=== PATIENT | male | born 1930 | race Caucasian/White ===

== ENCOUNTER 2016-04-16 17:43 | Inpatient (IN) | payer OTHER ==
[~2016-04-16] VITALS: Ht 170.2 cm; Wt 65.7 kg
[~2016-04-16 17:43] MED LIST: ALFUZOSIN HCL10 MG PO; ASPIRIN81 M1 PO; BACTRIM,SEPT1 TABLET PO; COREG12.5 M1 PO; COREG25 M1 PO; COREG25 MG PO; CRESTOR40 MG PO; DIGOX250 MCG PO; DIOVAN320 MG PO; LANOXIN,DIGIT0.25 MG PO; NITROSTAT0.4 MG SL; OMEGA 3 1,0001 EAC1 PO; PLAVIX75 MG PO; PROMETHAZINE-C120 ML PO; PROSCAR5 MG PO; SPIRIVA1 INHALATI IH; TRAVATAN 0.004%5 ML BOTH EYES; UROXATRAL10 MG PO; VIAGRA50 MG PO; WARFARIN SODIUM5 MG PO; XALATAN2.5 ML; XALATAN2.5 ML BOTH EYES
[2016-04-16 18:52] LABS: HEMATOCRIT 37.1 % (38.0-50.0); MCH 29.5 PG (29.0-34.0); MCHC 32.6 G/DL (30.0-36.0); MCV 90.5 FL (86-99); MEAN PLAT.VOLUME 10.1 uM^3 (9.0-12.4); PLATELET COUNT 159 K/uL (156-360); RBC DIS.WIDTH-CV 13.9 % (11.8-14.6); RBC DIS.WIDTH-SD 44.5 % (39-53)
[2016-04-16 19:11] LABS: CHLORIDE 103 mEq/L (99-109); POTASSIUM 4.4 mEq/L (3.7-5.4); SODIUM 137 mEq/L (136-147)
[2016-04-16 19:13] LABS: GLUCOSE 84 mg/dL (70-99)
[2016-04-16 19:14] LABS: ANION GAP 6 MEQ/L (2-14)
[2016-04-16 19:16] LABS: TROP-I INTERPRETATION NEGATIVE; TROPONIN-I 0.01 ng/mL (0.0-0.30)
[2016-04-16 19:17] LABS: GFR ESTIMATE (CALCULATED) > 59 mL/min/
[2016-04-16 19:18] LABS: UREA NITROGEN (BUN) 14 mg/dL (9-23)
[2016-04-16] MEDS ORDERED: LASIX20 MG PO (21:14)
[2016-04-16 21:16] LABS: TROP-I INTERPRETATION NEGATIVE; TROPONIN-I 0.02 ng/mL (0.0-0.30)
[2016-04-16 22:24] LABS: D-DIMER ELISA 0.66 mg/L FEU (< 0.57)
[2016-04-16 23:12] LABS: INFLUENZA A VIRAL ANTIGEN NEGATIVE; INFLUENZA B VIRAL ANTIGEN NEGATIVE
[2016-04-17] VITALS (9 sets, daily range): BP systolic 114–155; BP diastolic 61–86
[2016-04-17 03:45] LABS: TROP-I INTERPRETATION NEGATIVE; TROPONIN-I 0.02 ng/mL (0.0-0.30)
[2016-04-17 09:12] LABS: TROP-I INTERPRETATION NEGATIVE; TROPONIN-I 0.02 ng/mL (0.0-0.30)
[2016-04-18 05:40] VITALS: BP 167/91
[2016-04-18 06:29] LABS: EOSINOPHIL (%) 4.8 % (0-5); EOSINOPHIL COUNT 0.2 K/uL (0-0.3); HEMATOCRIT 36.7 % (38.0-50.0); LYMPHOCYTE COUNT 1.3 K/uL (1.0-2.8); MCH 29.1 PG (29.0-34.0); MCHC 32.7 G/DL (30.0-36.0); MCV 89.1 FL (86-99); MEAN PLAT.VOLUME 9.9 uM^3 (9.0-12.4); MONOCYTE (%) 8.5 % (3-12); MONOCYTE COUNT 0.4 K/uL (0-0.8); NEUTROPHIL (%) 59.2 % (45-76); NEUTROPHIL COUNT 2.9 K/uL (1.8-6.4); PLATELET COUNT 164 K/uL (156-360); RBC DIS.WIDTH-SD 45.6 % (39-53); RED BLOOD COUNT 4.12 M/uL (4.00-5.50)
[2016-04-18 07:02] LABS: ALKALINE PHOSPHATASE 100 IU/L (3-129); ANION GAP 9 MEQ/L (2-14); CHLORIDE 102 MEQ/L (99-109); GFR ESTIMATE (CALCULATED) > 59 mL/min/; GLUCOSE 89 mg/dL (70-99); POTASSIUM 3.7 MEQ/L (3.7-5.4); SAMPLE HEMOLYSIS CHECK 0; SAMPLE ICTERIC CHECK 1; SAMPLE LIPEMIA CHECK 0; SODIUM 142 MEQ/L (136-147); TOTAL BILIRUBIN 2.7 MG/DL (0.0-1.0); UREA NITROGEN (BUN) 18 mg/dL (9-23)
[2016-04-18 08:07] VITALS: BP 138/89
[2016-04-18] MEDS ORDERED: ADVAIR HFA120 INHALA IH (10:28)
[2016-04-18] MEDS ORDERED: AZITHROMYCIN500 M1 PO (10:28)
[2016-04-18] MEDS ORDERED: LISINOPRIL2.5 MG PO (10:33)
== END 2016-04-18 12:00 | disposition home or self-care (01) | DRG 291 ==
LOC: EME 17:43 → RME 17:43 → 4EAST 21:09 → EDOF 21:09 → 4EAST 04-17 01:08
PROVIDERS: Emergency Medicine; Hospitalist; Internal Medicine
DX: I11.0 Hypertensive heart disease with heart failure (principal); J96.01 Acute respiratory failure with hypoxia; J81.0 Acute pulmonary edema; I48.0 Paroxysmal atrial fibrillation; I49.5 Sick sinus syndrome; J44.1 Chronic obstructive pulmonary disease with (acute) exacerbation; I50.31 Acute diastolic (congestive) heart failure; E78.5 Hyperlipidemia, unspecified; I25.10 Atherosclerotic heart disease of native coronary artery without angina pectoris; Z95.5 Presence of coronary angioplasty implant and graft; Z95.0 Presence of cardiac pacemaker; Z79.01 Long term (current) use of anticoagulants; N40.0 Benign prostatic hyperplasia without lower urinary tract symptoms
CPT/HCPCS: 36415; 71020; 71275; 80048; 80053; 83880; 84484; 85025; 85027; 85379; 87502; 93005; 93306; 94640; 94640 76; 94799; 99281; 99285; J1940

== ENCOUNTER 2016-06-19 03:46 | Emergency (ER) | payer OTHER ==
[~2016-06-19] VITALS: Ht 170.2 cm; Wt 64.6 kg
[~2016-06-19 03:46] MED LIST changes: +ADVAIR HFA120 INHALA IH; +AZITHROMYCIN500 M1 PO; +LASIX20 MG PO; +LISINOPRIL2.5 MG PO
[2016-06-19 04:09] LABS: CREATININE 0.9 mg/dL (0.6-1.3); POTASSIUM 3.8 mEq/L (3.7-5.4)
[2016-06-19 04:10] LABS: EOSINOPHIL COUNT 0.3 K/uL (0-0.3); HEMATOCRIT 40.9 % (38.0-50.0); IMMATURE GRANULOCYTE (%) 0.1 % (0.0-0.7); IMMATURE GRANULOCYTE COUNT 0.1 K/uL; LYMPHOCYTE COUNT 1.3 K/uL (1.0-2.8); MCH 29.6 PG (29.0-34.0); MCHC 33.5 G/DL (30.0-36.0); MCV 88.3 FL (86-99); MEAN PLAT.VOLUME 9.8 uM^3 (9.0-12.4); MONOCYTE (%) 5.7 % (3-12); MONOCYTE COUNT 0.4 K/uL (0-0.8); NEUTROPHIL (%) 70.4 % (45-76); NEUTROPHIL COUNT 4.8 K/uL (1.8-6.4); PLATELET COUNT 165 K/uL (156-360); RBC DIS.WIDTH-CV 13.9 % (11.8-14.6); RBC DIS.WIDTH-SD 44.1 % (39-53); RED BLOOD COUNT 4.63 M/uL (4.00-5.50); WHITE BLOOD COUNT 6.8 K/uL (4.1-10.2)
[2016-06-19 04:19] LABS: AMYLASE 113 IU/L (1-118); CHLORIDE 107 mEq/L (99-109); POTASSIUM 4.1 mEq/L (3.7-5.4); SODIUM 142 mEq/L (136-147)
[2016-06-19 04:21] LABS: GLUCOSE 116 mg/dL (70-99)
[2016-06-19 04:22] LABS: ANION GAP 9 MEQ/L (2-14)
[2016-06-19 04:23] LABS: INTER. NORMALIZED RATIO 1.1; PROTHROMBIN TIME 11.7 (9.2-11.2); PTT 27.3 (25-32)
[2016-06-19 04:24] LABS: SERUM ETHYL ALCOHOL < 10 mg/dL
[2016-06-19 04:25] LABS: GFR ESTIMATE (CALCULATED) > 59 mL/min/
[2016-06-19 04:26] LABS: UREA NITROGEN (BUN) 23 mg/dL (9-23)
[2016-06-19 04:28] LABS: LIPASE 44 U/L (1.0-51.0)
[2016-06-19 04:32] LABS: TROP-I INTERPRETATION NEGATIVE; TROPONIN-I 0.02 ng/mL (0.0-0.30)
[2016-06-19 06:14] LABS: ADD MIUA? NO; BILIRUBIN NEGATIVE; BLOOD NEGATIVE; COLOR STRAW ((YELLOW)); GLUCOSE (STRIP) NEGATIVE; KETONES NEGATIVE; LEUKOCYTES NEGATIVE; NITRITE NEGATIVE; PROTEIN (STRIP) NEGATIVE; SPECIFIC GRAVITY 1.027 (1.000-1.030); UCUL ADDED? NO; UROBILINOGEN 0.2 MG/DL (0.2-1.0)
[2016-06-19 06:36] LABS: AMPHETAMINE NEGATIVE (500 ng/mL); BARBITURATES NEGATIVE (200 ng/mL); BENZODIAZEPINES NEGATIVE (150 ng/mL); COCAINE NEGATIVE (150 ng/mL); INTERNAL CONTROLS VALID? YES; METHADONE NEGATIVE (200 ng/mL); METHAMPHETAMINE NEGATIVE (500 ng/mL); OPIATES (MORPHINE) NEGATIVE (100 ng/mL); OXYCODONE NEGATIVE (100 ng/mL); PHENCYCLIDINE NEGATIVE (25 ng/mL); PROPOXYPHENE NEGATIVE (300 ng/mL); THC CANNABINOIDS NEGATIVE (50 ng/mL); TRICYCLIC ANTIDEPRESSANTS NEGATIVE (300 ng/mL)
[2016-06-19 08:38] VITALS: BP 164/82
== END 2016-06-19 08:53 | disposition short-term general hospital (02) ==
LOC: EME → EDBD 03:46 → EME 08:53
PROVIDERS: Emergency Medicine
DX: I63.541 Cerebral infarction due to unspecified occlusion or stenosis of right cerebellar artery (principal); I65.21 Occlusion and stenosis of right carotid artery; G81.90 Hemiplegia, unspecified affecting unspecified side; J44.9 Chronic obstructive pulmonary disease, unspecified; E78.5 Hyperlipidemia, unspecified; I10 Essential (primary) hypertension; I25.2 Old myocardial infarction; I25.10 Atherosclerotic heart disease of native coronary artery without angina pectoris; Z95.0 Presence of cardiac pacemaker
CPT/HCPCS: 70450; 70496; 70498; 80047; 80048; 81003; 82150; 83690; 84484; 85025; 85610; 85730; 86850; 86900; 86901; 93005; 99281; 99285; G0480; J7030

== ENCOUNTER 2016-07-31 01:54 | Emergency (ER) | payer OTHER ==
[~2016-07-31] VITALS: Ht 172.7 cm; Wt 63.1 kg
[2016-07-31] MEDS ORDERED: KEFLEX500 MG PO (02:39)
[2016-07-31 03:53] VITALS: BP 176/93
== END 2016-07-31 04:01 ==
LOC: EME → EDBD 01:54 → EME 01:54
PROC: 2Y41X5Z Packing of Nasal Region using Packing Material (ICD-10-PCS; principal; 2016-07-31)
DX: R04.0 Epistaxis (principal); J44.9 Chronic obstructive pulmonary disease, unspecified; E78.5 Hyperlipidemia, unspecified; I10 Essential (primary) hypertension; I25.2 Old myocardial infarction; Z79.01 Long term (current) use of anticoagulants
CPT/HCPCS: 99281; 99284

== ENCOUNTER → 2016-08-06 | Outpatient (CLI) | payer OTHER ==
[~2016-08-06] MED LIST changes: +KEFLEX500 MG PO
== END ==
LOC: RAD 09:58
DX: I63.311 Cerebral infarction due to thrombosis of right middle cerebral artery (principal); I69.354 Hemiplegia and hemiparesis following cerebral infarction affecting left non-dominant side; I69.391 Dysphagia following cerebral infarction; I10 Essential (primary) hypertension; I25.10 Atherosclerotic heart disease of native coronary artery without angina pectoris; Z95.0 Presence of cardiac pacemaker; Z95.5 Presence of coronary angioplasty implant and graft; J44.9 Chronic obstructive pulmonary disease, unspecified
CPT/HCPCS: 70450

== ENCOUNTER 2016-11-08 06:30 | Inpatient (IN) | payer OTHER ==
[~2016-11-08] VITALS: Ht 167.6 cm; Wt 64.6 kg
[2016-11-08 07:36] LABS: HEMATOCRIT 38.6 % (38.0-50.0); MCHC 32.4 G/DL (30.0-36.0); MCV 89.6 FL (86-99); MEAN PLAT.VOLUME 8.8 uM^3 (9.0-12.4); PLATELET COUNT 253 K/uL (156-360); RBC DIS.WIDTH-CV 13.2 % (11.8-14.6); RBC DIS.WIDTH-SD 43.3 % (39-53); RED BLOOD COUNT 4.31 M/uL (4.00-5.50); WHITE BLOOD COUNT 7.7 K/uL (4.1-10.2)
[2016-11-08 07:43] LABS: INTER. NORMALIZED RATIO 1.2; PROTHROMBIN TIME 13.1 SEC (10.2-12.9)
[2016-11-08 08:00] LABS: TROP-I INTERPRETATION NEGATIVE; TROPONIN-I < 0.01 ng/mL (0.0-0.30)
[2016-11-08 08:01] LABS: DIGOXIN < 0.3 ng/mL (0.8-2.0)
[2016-11-08 08:02] LABS: CHLORIDE 105 mEq/L (99-109); POTASSIUM 4.2 mEq/L (3.7-5.4); SODIUM 139 mEq/L (136-147)
[2016-11-08 08:05] LABS: ANION GAP 8 MEQ/L (2-14); GLUCOSE 106 mg/dL (70-99)
[2016-11-08 08:06] LABS: TOTAL BILIRUBIN 1.4 mg/dL (0.0-1.0)
[2016-11-08 08:08] LABS: ALKALINE PHOSPHATASE 95 IU/L (3-129); GFR ESTIMATE (CALCULATED) > 59 mL/min/
[2016-11-08 08:09] LABS: UREA NITROGEN (BUN) 17 mg/dL (9-23)
[2016-11-08 08:10] LABS: ADD MIUA? NO; BILIRUBIN NEGATIVE; BLOOD NEGATIVE; COLOR STRAW ((YELLOW)); GLUCOSE (STRIP) NEGATIVE; KETONES NEGATIVE; LEUKOCYTES NEGATIVE; NITRITE NEGATIVE; PROTEIN (STRIP) NEGATIVE; UCUL ADDED? NO; UROBILINOGEN 0.2 MG/DL (0.2-1.0)
[2016-11-08] MEDS ORDERED: CRESTOR40 MG PO (09:55)
[2016-11-08] MEDS ORDERED: COREG3.125 M1 PO (09:57)
[2016-11-08] MEDS ORDERED: VIBRAMYCIN100 MG PO (10:04)
[2016-11-08] MEDS ORDERED: SYMBICORT60 INHALA1 IH (10:19)
[2016-11-08 12:00] VITALS: BP 174/103
[2016-11-08 16:57] VITALS: BP 145/79
[2016-11-08 20:00] VITALS: BP 137/79
[2016-11-08 23:55] VITALS: BP 143/91
[2016-11-09 04:00] VITALS: BP 156/94
[2016-11-09 05:37] LABS: HEMATOCRIT 38.3 % (38.0-50.0); MCH 29.8 PG (29.0-34.0); MCHC 33.2 G/DL (30.0-36.0); MCV 89.9 FL (86-99); MEAN PLAT.VOLUME 9.3 uM^3 (9.0-12.4); PLATELET COUNT 266 K/uL (156-360); RBC DIS.WIDTH-CV 13.4 % (11.8-14.6); RBC DIS.WIDTH-SD 43.6 % (39-53); RED BLOOD COUNT 4.26 M/uL (4.00-5.50); WHITE BLOOD COUNT 7.3 K/uL (4.1-10.2)
[2016-11-09 05:59] LABS: ANION GAP 7 MEQ/L (2-14); CHLORIDE 104 MEQ/L (99-109); GFR ESTIMATE (CALCULATED) > 59 mL/min/; GLUCOSE 89 mg/dL (70-99); SAMPLE HEMOLYSIS CHECK 0; SAMPLE ICTERIC CHECK 0; SAMPLE LIPEMIA CHECK 0; SODIUM 140 MEQ/L (136-147); UREA NITROGEN (BUN) 12 mg/dL (9-23)
[2016-11-09 08:49] VITALS: BP 153/91
[2016-11-09] MEDS ORDERED: LEVETIRACETAM500 MG PO (09:54)
== END 2016-11-09 13:12 | disposition home or self-care (01) | DRG 101 ==
LOC: EME → EDBD 06:30 → 4EAST 09:47 → EDOF 09:47 → ENRESERV 09:51 → 4EAST 11:33
PROVIDERS: Emergency Medicine; Hospitalist
DX: G40.409 Other generalized epilepsy and epileptic syndromes, not intractable, without status epilepticus (principal); I49.5 Sick sinus syndrome; I69.354 Hemiplegia and hemiparesis following cerebral infarction affecting left non-dominant side; E78.00 Pure hypercholesterolemia, unspecified; E78.5 Hyperlipidemia, unspecified; I25.10 Atherosclerotic heart disease of native coronary artery without angina pectoris; I25.2 Old myocardial infarction; I48.0 Paroxysmal atrial fibrillation; I51.7 Cardiomegaly; J44.9 Chronic obstructive pulmonary disease, unspecified; Z79.01 Long term (current) use of anticoagulants; Z79.02 Long term (current) use of antithrombotics/antiplatelets; Z79.899 Other long term (current) drug therapy; Z95.0 Presence of cardiac pacemaker; Z95.5 Presence of coronary angioplasty implant and graft
CPT/HCPCS: 36415; 70450; 71010; 80048; 80053; 80162; 81003; 83605; 84484; 85027; 85610; 93005; 94640; 94640 76; 95819; 99281; 99283; J1644; J7030

== ENCOUNTER 2016-12-30 02:57 | Observation (INO) | payer OTHER ==
[~2016-12-30] VITALS: Ht 167.6 cm; Wt 69.2 kg
[~2016-12-30 02:57] MED LIST changes: +COREG3.125 M1 PO; +LEVETIRACETAM500 MG PO; +SYMBICORT60 INHALA1 IH; +VIBRAMYCIN100 MG PO
[2016-12-30] MEDS ORDERED: KEPPRA250 MG PO (03:12)
[2016-12-30] MEDS ORDERED: MUCINEX600 MG PO (03:13)
[2016-12-30] MEDS ORDERED: DEPAKOTE250 MG PO (03:13)
[2016-12-30 03:46] LABS: HEMATOCRIT 36.2 % (38.0-50.0); MCH 28.8 PG (29.0-34.0); MCV 89.8 FL (86-99); MEAN PLAT.VOLUME 9.3 uM^3 (9.0-12.4); PLATELET COUNT 218 K/uL (156-360); RBC DIS.WIDTH-CV 14.3 % (11.8-14.6); RED BLOOD COUNT 4.03 M/uL (4.00-5.50); WHITE BLOOD COUNT 8.2 K/uL (4.1-10.2)
[2016-12-30 04:02] LABS: INTER. NORMALIZED RATIO 1.1; PROTHROMBIN TIME 12.1 SEC (10.2-12.9)
[2016-12-30 04:03] LABS: CHLORIDE 107 mEq/L (99-109); SODIUM 143 mEq/L (136-147)
[2016-12-30 04:05] LABS: GLUCOSE 101 mg/dL (70-99)
[2016-12-30 04:07] LABS: ANION GAP 13 MEQ/L (2-14); TOTAL BILIRUBIN 1.1 mg/dL (0.0-1.0)
[2016-12-30 04:09] LABS: ALKALINE PHOSPHATASE 90 IU/L (3-129); GFR ESTIMATE (CALCULATED) > 59 mL/min/
[2016-12-30 04:10] LABS: UREA NITROGEN (BUN) 19 mg/dL (9-23)
[2016-12-30 04:12] LABS: LIPASE 14 U/L (1.0-51.0)
[2016-12-30 04:13] LABS: CREATINE KINASE 45 IU/L (1-294); TOTAL CK 45 IU/L (1-294)
[2016-12-30 04:19] LABS: CK-MB 1.3 ng/mL (0.0-4.9)
[2016-12-30 09:30] VITALS: BP 162/77
[2016-12-30 13:00] VITALS: BP 175/81
[2016-12-30 13:41] LABS: ADD MIUA? YES; BILIRUBIN NEGATIVE; BLOOD NEGATIVE; COLOR YELLOW ((YELLOW)); GLUCOSE (STRIP) NEGATIVE; KETONES NEGATIVE; LEUKOCYTES LARGE; NITRITE NEGATIVE; PROTEIN (STRIP) NEGATIVE; SPECIFIC GRAVITY 1.008 (1.000-1.030); UROBILINOGEN 0.2 MG/DL (0.2-1.0)
[2016-12-30 14:10] LABS: RED BLOOD CELLS 0-5 /HPF (0-5); WHITE BLOOD CELLS TNTC /HPF (0-5)
[2016-12-30 14:11] LABS: BACTERIA RARE /HPF; CASTS NONE SEEN /LPF; CRYSTALS NONE SEEN; EPITHELIAL CELLS RARE /HPF; MUCUS NONE SEEN /LPF; UCUL ADDED? YES
[2016-12-30 16:06] VITALS: BP 135/85
[2016-12-30 20:00] VITALS: BP 147/80
[2016-12-31] VITALS: BP 142/80
[2016-12-31 04:00] VITALS: BP 121/76
[2016-12-31 09:05] VITALS: BP 176/101
[2016-12-31] MEDS ORDERED: DIVALPROEX SOD500 MG PO (11:13)
[2016-12-31] MEDS ORDERED: KEFLEX500 MG PO (11:15)
[2016-12-31 11:42] VITALS: BP 116/77
== END 2016-12-31 12:20 | disposition home or self-care (01) ==
LOC: EME → EDBD 02:57 → EME 02:57 → EDOF 07:54 → ENRESERV 07:58 → 5WEST 09:32
PROVIDERS: Emergency Medicine; Hospitalist
DX: G40.909 Epilepsy, unspecified, not intractable, without status epilepticus (principal); I69.354 Hemiplegia and hemiparesis following cerebral infarction affecting left non-dominant side; M54.9 Dorsalgia, unspecified; I25.10 Atherosclerotic heart disease of native coronary artery without angina pectoris; I25.2 Old myocardial infarction; Z95.5 Presence of coronary angioplasty implant and graft; I49.5 Sick sinus syndrome; Z95.0 Presence of cardiac pacemaker; I48.0 Paroxysmal atrial fibrillation; I10 Essential (primary) hypertension; J44.9 Chronic obstructive pulmonary disease, unspecified; R13.10 Dysphagia, unspecified; Z88.6 Allergy status to analgesic agent
CPT/HCPCS: 71020; 80053; 80164; 81003; 82550; 82553; 83690; 85027; 85610; 85730; 87077; 87086; 87186; 93005; 94640; 94640 76; 94760; 99202; 99281; 99285; G0378; J0696; J1650; J7030; J7050

== ENCOUNTER 2017-01-23 19:29 | Emergency (ER) | payer OTHER ==
[~2017-01-23] VITALS: Ht 172.7 cm; Wt 71.5 kg
[~2017-01-23 19:29] MED LIST changes: +DEPAKOTE250 MG PO; +DIVALPROEX SOD500 MG PO; +KEPPRA250 MG PO; +MUCINEX600 MG PO
[2017-01-23 19:52] LABS: EOSINOPHIL COUNT 0.4 K/uL (0-0.3); HEMATOCRIT 40.2 % (38.0-50.0); IMMATURE GRANULOCYTE (%) 0.8 % (0.0-0.7); IMMATURE GRANULOCYTE COUNT 0.1 K/uL; INSTRUMENT ABS NEUTROPHIL CT 3.4 K/uL; LYMPHOCYTE COUNT 1.5 K/uL (1.0-2.8); MCH 29.1 PG (29.0-34.0); MCHC 31.8 G/DL (30.0-36.0); MCV 91.4 FL (86-99); MEAN PLAT.VOLUME 10.1 uM^3 (9.0-12.4); MONOCYTE (%) 10.3 % (3-12); MONOCYTE COUNT 0.6 K/uL (0-0.8); NEUTROPHIL (%) 56.8 % (45-76); NEUTROPHIL COUNT 3.4 K/uL (1.8-6.4); PLATELET COUNT 183 K/uL (156-360); RBC DIS.WIDTH-CV 14.5 % (11.8-14.6); RBC DIS.WIDTH-SD 48.5 % (39-53)
[2017-01-23 19:58] LABS: INTER. NORMALIZED RATIO 1.1; PROTHROMBIN TIME 11.9 SEC (10.2-12.9)
[2017-01-23 20:00] LABS: PTT 26.4 SEC (25-37)
[2017-01-23 20:01] LABS: AMYLASE 96 IU/L (1-118); POTASSIUM 4.7 mEq/L (3.7-5.4); SODIUM 144 mEq/L (136-147)
[2017-01-23 20:02] LABS: GLUCOSE 113 mg/dL (70-99)
[2017-01-23 20:04] LABS: ANION GAP 14 MEQ/L (2-14)
[2017-01-23 20:06] LABS: GFR ESTIMATE (CALCULATED) 51 mL/min/; SERUM ETHYL ALCOHOL < 10 mg/dL
[2017-01-23 20:07] LABS: UREA NITROGEN (BUN) 28 mg/dL (9-23)
[2017-01-23 20:09] LABS: LIPASE 38 U/L (1.0-51.0)
[2017-01-23 20:12] LABS: TROP-I INTERPRETATION NEGATIVE; TROPONIN-I 0.01 ng/mL (0.0-0.30)
[2017-01-23 20:17] LABS: CHLORIDE 105 mEq/L (99-109)
[2017-01-23] MEDS ORDERED: KEPPRA500 MG PO (21:08)
[2017-01-23 22:29] LABS: ADD MIUA? NO; BILIRUBIN NEGATIVE; BLOOD NEGATIVE; COLOR YELLOW ((YELLOW)); GLUCOSE (STRIP) NEGATIVE; KETONES NEGATIVE; LEUKOCYTES NEGATIVE; NITRITE NEGATIVE; PROTEIN (STRIP) 30; SPECIFIC GRAVITY 1.016 (1.000-1.030); UCUL ADDED? NO; UROBILINOGEN 0.2 MG/DL (0.2-1.0)
[2017-01-23 22:57] LABS: AMPHETAMINE NEGATIVE (500 ng/mL); BARBITURATES NEGATIVE (200 ng/mL); BENZODIAZEPINES NEGATIVE (150 ng/mL); COCAINE NEGATIVE (150 ng/mL); INTERNAL CONTROLS VALID? YES; METHADONE NEGATIVE (200 ng/mL); METHAMPHETAMINE NEGATIVE (500 ng/mL); OPIATES (MORPHINE) NEGATIVE (100 ng/mL); OXYCODONE NEGATIVE (100 ng/mL); PHENCYCLIDINE NEGATIVE (25 ng/mL); PROPOXYPHENE NEGATIVE (300 ng/mL); THC CANNABINOIDS NEGATIVE (50 ng/mL); TRICYCLIC ANTIDEPRESSANTS NEGATIVE (300 ng/mL)
[2017-01-23 23:39] VITALS: BP 152/97
== END 2017-01-23 23:38 | disposition home or self-care (01) ==
LOC: EME → EDBD 19:29 → EDSEX 19:29 → EME 19:29
DX: I69.398 Other sequelae of cerebral infarction (principal); G40.89 Other seizures; I69.334 Monoplegia of upper limb following cerebral infarction affecting left non-dominant side; I48.91 Unspecified atrial fibrillation; Z79.01 Long term (current) use of anticoagulants; I10 Essential (primary) hypertension; I25.10 Atherosclerotic heart disease of native coronary artery without angina pectoris; I25.2 Old myocardial infarction; Z95.5 Presence of coronary angioplasty implant and graft; E78.5 Hyperlipidemia, unspecified; J44.9 Chronic obstructive pulmonary disease, unspecified; H40.9 Unspecified glaucoma; Z95.0 Presence of cardiac pacemaker
CPT/HCPCS: 70450; 74020; 80048; 80164; 81003; 82150; 83690; 84484; 85025; 85610; 85730; 86850; 86900; 86901; 93005; 99281; 99285; G0480; J7030

== ENCOUNTER → 2017-08-02 | Outpatient (CLI) | payer OTHER ==
[~2017-08-02] MED LIST changes: +COZAAR25 MG PO; +KEPPRA500 MG PO; +LASIX40 MG PO
== END | disposition home or self-care (01) ==
LOC: NUC 08:00
DX: M89.8X2 Other specified disorders of bone, upper arm (principal); M89.8X1 Other specified disorders of bone, shoulder; M89.8X8 Other specified disorders of bone, other site; M19.012 Primary osteoarthritis, left shoulder; M41.85 Other forms of scoliosis, thoracolumbar region; Z95.0 Presence of cardiac pacemaker
CPT/HCPCS: 78315; A9503

== ENCOUNTER 2017-12-02 07:54 | Inpatient (IN) | payer OTHER ==
[~2017-12-02] VITALS: Ht 167.6 cm; Wt 72.6 kg
[2017-12-02 09:56] LABS: BASOPHIL (%) 0.2 % (0-1); EOSINOPHIL (%) 0.4 % (0-5); EOSINOPHIL COUNT 0.1 K/uL (0-0.3); HEMATOCRIT 34.6 % (38.0-50.0); HEMOGLOBIN 11.4 G/DL (12.5-16.6); IMMATURE GRANULOCYTE (%) 0.4 % (0.0-0.7); LYMPHOCYTE (%) 8.8 % (15-42); LYMPHOCYTE COUNT 1.2 K/uL (1.0-2.8); MCH 31.1 PG (29.0-34.0); MCHC 32.9 G/DL (30.0-36.0); MCV 94.5 FL (86-99); MONOCYTE (%) 10.7 % (3-12); MONOCYTE COUNT 1.4 K/uL (0-0.8); NEUTROPHIL (%) 79.5 % (45-76); NEUTROPHIL COUNT 10.8 K/uL (1.8-6.4); PLATELET COUNT 169 K/uL (156-360); RBC DIS.WIDTH-CV 13.8 % (11.8-14.6); RBC DIS.WIDTH-SD 47.9 % (39-53); RED BLOOD COUNT 3.66 M/uL (4.00-5.50); WHITE BLOOD COUNT 13.5 K/uL (4.1-10.2)
[2017-12-02 10:11] LABS: CHLORIDE 108 mEq/L (99-109); POTASSIUM 4.8 mEq/L (3.7-5.4); SODIUM 141 mEq/L (136-147)
[2017-12-02 10:12] LABS: MAGNESIUM 2.2 mg/dL (1.3-2.7)
[2017-12-02 10:13] LABS: GLUCOSE 105 mg/dL (70-99)
[2017-12-02 10:17] LABS: CREATININE 1.5 mg/dL (0.6-1.3); GFR ESTIMATE (CALCULATED) 47 mL/min/ (58.99-99999); INTER. NORMALIZED RATIO 1.2; UREA NITROGEN (BUN) 23 mg/dL (9-23)
[2017-12-02 10:19] LABS: TROP-I INTERPRETATION NEGATIVE; TROPONIN-I 0.03 ng/mL (0.0-0.30)
[2017-12-02 10:20] LABS: PTT 26.3 SEC (25-37)
[2017-12-02 10:30] LABS: APPEARANCE CLOUDY ((CLEAR)); BILIRUBIN NEGATIVE; BLOOD LARGE; COLOR YELLOW ((YELLOW)); GLUCOSE (STRIP) NEGATIVE; KETONES NEGATIVE; LEUKOCYTES LARGE; NITRITE NEGATIVE; PROTEIN (STRIP) 100; SPECIFIC GRAVITY 1.016 (1.000-1.030); UROBILINOGEN 0.2 MG/DL (0.2-1.0)
[2017-12-02 10:42] LABS: RED BLOOD CELLS TNTC /HPF (0-5); WHITE BLOOD CELLS TNTC /HPF (0-5)
[2017-12-02 10:43] LABS: BACTERIA RARE /HPF; EPITHELIAL CELLS 1+ /HPF; MUCUS RARE /LPF; UCUL ADDED? YES
[2017-12-02] MEDS ORDERED: COLACE100 MG PO (11:17)
[2017-12-02] MEDS ORDERED: PROTONIX40 MG PO (11:17)
[2017-12-02] MEDS ORDERED: MIRALAX17 GM PO (11:17)
[2017-12-02] MEDS ORDERED: TYLENOL EXTRA500 MG PO (11:18)
[2017-12-02 13:36] VITALS: BP 124/83
[2017-12-02 16:16] VITALS: BP 102/65
[2017-12-02 19:36] VITALS: BP 118/65
[2017-12-02 23:42] VITALS: BP 139/60
[2017-12-03 03:43] VITALS: BP 115/69
[2017-12-03 05:50] LABS: BASOPHIL (%) 0.2 % (0-1); EOSINOPHIL (%) 1.2 % (0-5); EOSINOPHIL COUNT 0.1 K/uL (0-0.3); HEMATOCRIT 31.1 % (38.0-50.0); HEMOGLOBIN 9.9 G/DL (12.5-16.6); IMMATURE GRANULOCYTE (%) 0.3 % (0.0-0.7); LYMPHOCYTE (%) 19.1 % (15-42); LYMPHOCYTE COUNT 1.7 K/uL (1.0-2.8); MCH 30.4 PG (29.0-34.0); MCHC 31.8 G/DL (30.0-36.0); MCV 95.4 FL (86-99); MONOCYTE (%) 10.5 % (3-12); NEUTROPHIL (%) 68.7 % (45-76); NEUTROPHIL COUNT 6.2 K/uL (1.8-6.4); PLATELET COUNT 146 K/uL (156-360); RBC DIS.WIDTH-CV 14.1 % (11.8-14.6); RBC DIS.WIDTH-SD 49.5 % (39-53); RED BLOOD COUNT 3.26 M/uL (4.00-5.50); WHITE BLOOD COUNT 9.1 K/uL (4.1-10.2)
[2017-12-03 06:37] LABS: CHLORIDE 111 MEQ/L (99-109); CREATININE 1.2 MG/DL (0.6-1.3); GFR ESTIMATE (CALCULATED) > 59 mL/min/ (58.99-99999); GLUCOSE 90 mg/dL (70-99); POTASSIUM 4.3 MEQ/L (3.7-5.4); SODIUM 145 MEQ/L (136-147); UREA NITROGEN (BUN) 20 mg/dL (9-23)
[2017-12-03 07:17] VITALS: BP 122/75
[2017-12-03 12:02] VITALS: BP 122/69
[2017-12-03 16:42] VITALS: BP 140/82
[2017-12-03 19:49] VITALS: BP 137/99
[2017-12-04 00:15] VITALS: BP 160/77
[2017-12-04 04:27] VITALS: BP 122/59
[2017-12-04 07:48] VITALS: BP 135/79
[2017-12-04 12:20] VITALS: BP 141/80
[2017-12-04 16:06] VITALS: BP 144/91
[2017-12-04 19:46] VITALS: BP 130/71
[2017-12-05 00:37] VITALS: BP 145/85
[2017-12-05 04:11] VITALS: BP 149/75
[2017-12-05 07:29] VITALS: BP 126/88
[2017-12-05 12:39] VITALS: BP 138/78
[2017-12-05] MEDS ORDERED: CEFTIN250 MG PO (13:01)
== END 2017-12-05 15:20 | DRG 690 ==
LOC: EME 07:54 → EDOF 11:43 → 5SOUTH 11:43 → ENRESERV 11:54 → 5SOUTH 13:16
PROVIDERS: Emergency Medicine; Hospitalist
DX: N39.0 Urinary tract infection, site not specified (principal); N17.9 Acute kidney failure, unspecified; I11.0 Hypertensive heart disease with heart failure; I50.9 Heart failure, unspecified; I48.0 Paroxysmal atrial fibrillation; I25.10 Atherosclerotic heart disease of native coronary artery without angina pectoris; J44.9 Chronic obstructive pulmonary disease, unspecified; I69.354 Hemiplegia and hemiparesis following cerebral infarction affecting left non-dominant side; N40.1 Benign prostatic hyperplasia with lower urinary tract symptoms; R32 Unspecified urinary incontinence; R33.8 Other retention of urine; R56.9 Unspecified convulsions; I25.2 Old myocardial infarction; E78.5 Hyperlipidemia, unspecified; H40.9 Unspecified glaucoma; Z95.0 Presence of cardiac pacemaker
CPT/HCPCS: 70450; 71045; 72110; 73502; 80048; 81003; 83605; 83735; 84484; 85025; 85610; 85730; 87040; 87077; 87086; 92610 GN; 93005; 94640; J0696; J1644; J7030